=== PATIENT | male | born 1985 | race Caucasian/White ===

== ENCOUNTER 2021-04-18 09:46 | Emergency (ER) | payer OTHER, SELFPAY ==
[2021-04-18 09:52] VITALS: BP 121/71; PULSE 83; RESP 20; TEMP 37.2; O2SAT 98
--- NOTE | 2021-04-18 10:02 | ED.SKABFB ---
HPI - Skin/Abscess/Foreign Bdy General Chief complaint: Skin/Abscess/Foreign Body Stated complaint: Spider bite on right Arm Time Seen by Provider: 04/18/21 10:00 Source: patient Mode of arrival: ambulatory Limitations: no limitations History of Present Illness HPI narrative: Rubén Edmond is a 36 yo male he has a PMH of chronic back pain and depression who [facility] with lesions to right lower forearm, states it has started day before yesterday and is rates the pain as 8 out of 10, swollen area 6x6, very tender Has been taking buprenorphine for alcohol abuse Related Data Home Medications Medication Instructions Recorded Confirmed buprenorphine [Sublocade] mg SUBCUT 04/18/21 duloxetine mg PO 04/18/21 duloxetine mg PO 04/18/21 gabapentin 04/18/21 nicotine 04/18/21 Allergies Allergy/AdvReac Type Severity Reaction Status Date / Time latex Allergy Unknown Rash Verified 04/18/21 10:02 Review of Systems Review of Systems: Narrative: CONSTITUTIONAL: Denies fever, chills, sweats. EYES: Denies visual changes, redness, discharge. ENT: Denies rhinorrhea, congestion, sore throat, otalgia. CARDIOVASCULAR: Denies chest pain, palpitations, edema. RESPIRATORY: Denies dyspnea, wheezing, cough GASTROINTESTINAL: Denies abdominal pain, nausea, vomiting, diarrhea. GENITOURINARY: Denies dysuria, hematuria, abnormal discharge SKIN: Right forearm swelling lesion 6 x 6 tender NEUROLOGIC: Denies numbness, or focal weakness. PSYCHIATRIC: Denies anxiety or depression. PMFSH Past Medical History Medical History Chronic back pain Social History Social History (Updated 04/18/21 @ 10:24 by Rand Estrada CNP) Smoking packs per day: 1 Smoking cigarettes per day: 20.0 Smoking status: Current every day smoker Alcohol intake: never Comments At time of signature, I agree with nursing past medical, surgical, social and family history. There is no relevant family history pertinent to the presenting complaint. Exam Narrative: Exam Narrative: GENERAL: This is a well-nourished, well-developed patient, in mild distress. HEAD: normocephalic, atraumatic. EYES: Sclera clear/white. Vision is grossly intact. EARS: External ears normal. Hearing grossly intact. NOSE: External nose normal without nasal discharge, nares without redness, no rhinorrhea. THROAT: Mucous membranes moist, NECK: Neck supple, non-tender CARDIOVASCULAR: Regular rate and rhythm without murmurs, gallops, or rubs. RESPIRATORY: Clear to auscultation. Breath sounds equal bilaterally. No wheezes, rales, or rhonchi. GASTROINTESTINAL: Abdomen soft, non-tender, SKIN: warm, intact with right forearm palmar side, swollen tender lesion 6 x 6, not fluctuant NEURO: awake, alert, and oriented to person, place and time. There were no obvious focal neurologic abnormalities. Steady gait EXTREMITIES: Normal range of motion. BACK: Nontender without deformity Course Course Emergency Course: Patient comes with large induration on her arm that is questionable for spider bite - inquired, and patient denied, use of drugs or this being related to drug use. Is not fluctuant and very tender so needle was inserted to see if it was ready to be lanced, only blood return Right placed to area will use warm soaks given to antibiotics and the plan is if it worsens tomorrow with he will return when I am here to I&D it if it gets better than he will continue the antibiotics Vital Signs Vital signs: Vital Signs Temperature 99.0 F 04/18/21 09:52 Pulse Rate 83 04/18/21 09:52 Respiratory Rate 20 04/18/21 09:52 Blood Pressure 121/71 04/18/21 09:52 Pulse Oximetry 98 04/18/21 09:52 Temperature 99.0 F 04/18/21 09:52 Pulse Rate 83 04/18/21 09:52 Respiratory Rate 20 04/18/21 09:52 Blood Pressure 121/71 04/18/21 09:52 Pulse Oximetry 98 04/18/21 09:52 Procedures Abscess I/D upper extremit
[2021-04-18] MEDS: LIDOCAINE, EPINEPHRINE, TETRACAINE VISCOUS SOLN 3 ML TOPICAL (10:20)
== END 2021-04-18 10:35 | disposition home or self-care (01) ==
PROVIDERS: Emergency Provider Nurse Practitioner
DX: L03.113 Cellulitis of right upper limb (principal); F17.210 Nicotine dependence, cigarettes, uncomplicated
CPT/HCPCS: 10160; 99213; G0463

== ENCOUNTER 2021-11-02 18:39 | Emergency (ER) | payer OTHER, SELFPAY ==
--- NOTE | ~2021-11-02 | XR_ITS ---
XR knee RT min 4V 11/02/2021 19:12 INDICATION: Knee pain PROCEDURE: 5 views right knee COMPARISON: No prior studies for comparison. FINDINGS: Fracture, dislocation or subluxation is not identified. No significant joint effusion. The soft tissues appear within normal limits. No foreign bodies are identified. IMPRESSION: 1: NO ACUTE BONE OR JOINT ABNORMALITY IDENTIFIED. Reviewed, dictated and finalized at location A. [employer]
[2021-11-02 18:48] VITALS: BP 100/47; PULSE 74; RESP 14; TEMP 37.1; O2SAT 98
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
== END 2021-11-02 19:35 | disposition home or self-care (01) ==
PROVIDERS: Emergency Provider Registered Nurse
DX: S86.911A Strain of unspecified muscle(s) and tendon(s) at lower leg level, right leg, initial encounter (principal); X50.1XXA Overexertion from prolonged static or awkward postures, initial encounter; F17.210 Nicotine dependence, cigarettes, uncomplicated
CPT/HCPCS: 73564; 99213; G0463

== ENCOUNTER 2022-10-11 14:11 | Emergency (ER) | payer OTHER, SELFPAY ==
--- NOTE | 2022-10-11 16:11 | PC.NURSE ---
AT 1411 PT WAS CALLED FROM WAITING ROOM TO GET VITALS BUT PT WAS OUTSIDE
== END 2022-10-11 16:11 | disposition left against medical advice (07) ==
LOC: EXPBETH 14:14
PROVIDERS: Emergency Provider Registered Nurse
DX: Z53.21 Procedure and treatment not carried out due to patient leaving prior to being seen by health care provider (principal)
CPT/HCPCS: 99199

== ENCOUNTER 2023-08-12 09:41 | Emergency (ER) | payer OTHER, SELFPAY ==
[2023-08-12 09:47] VITALS: BP 132/73; PULSE 70; RESP 16; TEMP 36.9; O2SAT 96
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
== END 2023-08-12 10:05 | disposition home or self-care (01) ==
PROVIDERS: Emergency Provider Nurse Practitioner
DX: J06.9 Acute upper respiratory infection, unspecified (principal); F17.210 Nicotine dependence, cigarettes, uncomplicated
CPT/HCPCS: 99213; G0463